=== PATIENT | male | born 1940 | race Caucasian/White ===

== ENCOUNTER 2020-02-01 14:40 | Observation (INO) | payer MEDICARE, MEDICAID ==
[~2020-02-01] VITALS: Ht 180.3 cm; Wt 114.1 kg
[2020-02-01 15:47] LABS: BASOPHILS % (AUTO) 0 % (0-1); EOSINOPHILS % (AUTO) 2 % (1-7); LYMPHOCYTES % (AUTO) 9 % (22-44); MEAN CORPUSCULAR HEMOGLOBIN 31.7 pg (27.5-34.5); MEAN CORPUSCULAR HGB CONC 33.1 g/dL (33.2-36.2); MONOCYTES % (AUTO) 11 % (2-9); NEUTROPHILS % (AUTO) 78 % (42-75); PLATELET COUNT 270 x10^3/uL (130-400); RED BLOOD COUNT 4.51 x10^6/uL (4.38-5.82); RED CELL DISTRIBUTION WIDTH 13.8 % (9.4-14.8)
[2020-02-01 15:49] LABS: ALANINE AMINOTRANSFERASE 11 U/L (12-78); ALBUMIN 2.9 g/dL (3.4-5.0); ANION GAP 5 mmol/L (5-15); CALCIUM 8.7 mg/dL (8.5-10.1); CHLORIDE 102 mmol/L (98-107); CREATININE 0.82 mg/dL (0.7-1.3)
[2020-02-01 15:50] LABS: MD NO
[2020-02-01 15:53] LABS: ALKALINE PHOSPHATASE 120 U/L (45-117); BILIRUBIN,TOTAL 0.4 mg/dL (0.2-1.0); TOTAL PROTEIN 7.1 g/dL (6.4-8.2); TROPONIN I < 0.015 ng/mL (0.000-0.045)
--- NOTE | 2020-02-01 16:12 | NUR ---
BETY CARTER, PT WITH C/O SOB C SHARP CP THIS AM RATED 12/20, PT TOOK 2 PAUL WITH SOME RELEIF CP NOW 09/19. PT RECIEVED 325 ASA PHOTO COLORER BY EMS. PT WITH HX DC C 8 STENTS. LAST DC IN JUNE THIS YR. PT TO CARD MONITOR, BP, CONT PULSE OX. PT STATES "I FEEL SO MUCH BETTER" ERMD IN TO EVAL PT, ORDERS RECIEVED
[2020-02-01] MEDS ORDERED: ONDANSETRON 2MG/ML, 2ML IVPush PRN (17:00)
[2020-02-01] MEDS ORDERED: NITROGLYCERIN 0.4 MG BOTTLE (25 TABS) SL PRN (17:00)
[2020-02-01] MEDS ORDERED: morphine SULFATE 10 MG/ML, 1ML IVPush PRN (17:00)
[2020-02-01] MEDS ORDERED: PROMETHAZINE 25 MG/ML, 1ML IM PRN (17:00)
--- NOTE | 2020-02-01 17:52 | NUR ---
PT TO BE ADMITTED, ADMITTING MD IN TO EVAL PT. WARM BLANKET PROVIDED TO PT, MEAL TRAY ORDERED, NO OTHER NEEDS
--- NOTE | 2020-02-01 18:15 | NUR ---
PT GIVEN MEAL TRAY
--- NOTE | 2020-02-01 18:52 | NUR ---
REPORT FROM DIVYA ARELLANO. PT RESTING WITH NO NEEDS AT THIS TIME. WAITING FOR BED ASSIGNMENT. CALL LIGHT IN REACH
[2020-02-01] MEDS ORDERED: MORPHINE SULFATE 4 MG/ML, 1ML ONE (19:50)
--- NOTE | 2020-02-01 19:55 | NUR ---
TASK RN, REPORT GIVEN TO NIEVES. PT READY FOR TRANSPORT. PT MEDICATED PER EMAR FOR 9/10 CHRONIC R HIP AND R BACK PAIN. VS UPDATED IN COMPUTER.
[2020-02-01] MEDS ORDERED: ATORVASTATIN 80 MG TABLET PO SCH (21:00)
[2020-02-01] MEDS: HEPARIN 5,000 UNITS/ML, 1ML SQ SCH (21:54)
[2020-02-01 22:03] LABS: TROPONIN I < 0.015 ng/mL (0.000-0.045)
[2020-02-01 22:07] VITALS: BP 104/63
[2020-02-01 22:23] VITALS: BP 94/93
[2020-02-01] MEDS ORDERED: FURO40TA6 PO (23:58)
[2020-02-01] MEDS ORDERED: NITR0.4T28 SL (23:58)
[2020-02-01] MEDS ORDERED: ROSU5TAB12 PO (23:58)
[2020-02-01] MEDS ORDERED: CARV3.122 PO (23:58)
[2020-02-01] MEDS ORDERED: DULO60CA7 PO (23:58)
[2020-02-01] MEDS ORDERED: TEMA30CA PO (23:58)
[2020-02-01] MEDS ORDERED: TAMS-11 PO (23:58)
[2020-02-01] MEDS ORDERED: POTA10CA PO (23:58)
[2020-02-01] MEDS ORDERED: GABA300C PO (23:58)
[2020-02-01] MEDS ORDERED: TICA90TA PO (23:58)
[2020-02-02 01:31] VITALS: BP 132/84
[2020-02-02 03:05] LABS: BASOPHILS % (AUTO) 1 % (0-1); EOSINOPHILS % (AUTO) 4 % (1-7); LYMPHOCYTES % (AUTO) 13 % (22-44); MEAN CORPUSCULAR HEMOGLOBIN 31.8 pg (27.5-34.5); MEAN CORPUSCULAR HGB CONC 32.9 g/dL (33.2-36.2); MEAN PLATELET VOLUME 8.7 fL (7.4-10.4); MONOCYTES % (AUTO) 12 % (2-9); NEUTROPHILS % (AUTO) 71 % (42-75); PLATELET COUNT 242 x10^3/uL (130-400); RED BLOOD COUNT 4.31 x10^6/uL (4.38-5.82); RED CELL DISTRIBUTION WIDTH 13.7 % (9.4-14.8)
[2020-02-02 03:06] LABS: MD NO
[2020-02-02 03:11] LABS: ALANINE AMINOTRANSFERASE 11 U/L (12-78); ALBUMIN 2.8 g/dL (3.4-5.0); ANION GAP 4 mmol/L (5-15); CALCIUM 8.7 mg/dL (8.5-10.1); CHLORIDE 103 mmol/L (98-107); CREATININE 0.81 mg/dL (0.7-1.3)
[2020-02-02 03:13] LABS: ALKALINE PHOSPHATASE 106 U/L (45-117); BILIRUBIN,TOTAL 0.4 mg/dL (0.2-1.0); TOTAL PROTEIN 6.8 g/dL (6.4-8.2)
[2020-02-02 03:39] LABS: TROPONIN I < 0.015 ng/mL (0.000-0.045)
[2020-02-02] MEDS ORDERED: ASPIRIN 325 MG TABLET EC PO SCH (06:00)
[2020-02-02] MEDS: HEPARIN 5,000 UNITS/ML, 1ML SQ SCH ×2 (06:05→14:50)
[2020-02-02] MEDS ORDERED: REGADENOSON 0.4 MG/5 ML SYRINGE ONE (09:00)
[2020-02-02 09:05] VITALS: BP 147/82
[2020-02-02 12:45] VITALS: BP 133/79
[2020-02-02] MEDS ORDERED: ASPI-515 PO (16:53)
[2020-02-02] MEDS ORDERED: METO25TA35 PO (16:53)
[2020-02-02] MEDS ORDERED: FLU VACC QS2020-21(6MOS UP)/PF 60MCG/0.5 ML SYR IM-VACC ONE (19:00)
[2020-02-02 19:37] VITALS: BP 136/76
== END 2020-02-02 21:07 | disposition home or self-care (01) ==
LOC: ED 17:21 → INTOOBSV 17:45 → EDIP 17:45 → 5SO 19:58
PROVIDERS: ADMIT Internal Medicine; ATTEND Internal Medicine
DX: R07.89 Other chest pain (principal); E66.9 Obesity, unspecified; R53.2 Functional quadriplegia; I10 Essential (primary) hypertension; I95.9 Hypotension, unspecified; I25.10 Atherosclerotic heart disease of native coronary artery without angina pectoris; D72.829 Elevated white blood cell count, unspecified; I25.2 Old myocardial infarction; J44.9 Chronic obstructive pulmonary disease, unspecified; Z95.810 Presence of automatic (implantable) cardiac defibrillator; Z95.5 Presence of coronary angioplasty implant and graft; Z93.59 Other cystostomy status; Z74.01 Bed confinement status; Z86.74 Personal history of sudden cardiac arrest; Z79.899 Other long term (current) drug therapy; Z23 Encounter for immunization
CPT/HCPCS: 36415; 71045; 78452; 80053; 83880; 84484; 85025; 90686; 93005; 93017; 96372; 96374; 99285; A9502; C8929; C9898; G0008; G0378; J1644; J2270; J2785; Q9957

== ENCOUNTER 2020-02-03 23:55 | Emergency (ER) | payer MEDICARE, MEDICAID ==
[~2020-02-03] VITALS: Ht 180.3 cm; Wt 115.0 kg
[~2020-02-03 23:55] MED LIST: ASPI-515 PO; CARV3.122 PO; DULO60CA7 PO; FURO40TA6 PO; GABA300C PO; METO25TA35 PO; NITR0.4T28 SL; POTA10CA PO; ROSU5TAB12 PO; TAMS-11 PO; TEMA30CA PO; TICA90TA PO
--- NOTE | 2020-02-04 00:21 | NUR ---
PT BIB [facility] FOR NOT BEING ABLE TO PEE AND THAT HIS CATHETER IS BLOCKED. PT IS BEDBOUND AND HAS A CHRONIC ENGLISH. ENGLISH WAS JUST CHANGED WITHIN LAST FEW DAYS WHILE IN HOSPITAL. PT BLADDER SCANNED AND PT HAS 35 MLS IN BLADDER. PT ALSO SAID HE HASNT HAD MUCH FLUIDS TODAY. PA NOTIFIED. WILL CONTINUE TO MONITOR. CALL LIGHT IN REACH
--- NOTE | 2020-02-04 00:34 | NUR ---
PT GIVEN WATER TO DRINK PER MD . LAB AT BEDSIDE. PT IN NAD. CALL LIGHT IN REACH
[2020-02-04 00:49] LABS: BASOPHILS % (AUTO) 0 % (0-1); EOSINOPHILS % (AUTO) 3 % (1-7); LYMPHOCYTES % (AUTO) 6 % (22-44); MEAN CORPUSCULAR HEMOGLOBIN 31.5 pg (27.5-34.5); MEAN CORPUSCULAR HGB CONC 32.6 g/dL (33.2-36.2); MEAN PLATELET VOLUME 9.4 fL (7.4-10.4); MONOCYTES % (AUTO) 10 % (2-9); NEUTROPHILS % (AUTO) 81 % (42-75); PLATELET COUNT 251 x10^3/uL (130-400); RED BLOOD COUNT 4.73 x10^6/uL (4.38-5.82); RED CELL DISTRIBUTION WIDTH 13.7 % (9.4-14.8)
[2020-02-04 00:50] LABS: MD NO
[2020-02-04 00:56] LABS: ANION GAP 3 mmol/L (5-15); CALCIUM 8.6 mg/dL (8.5-10.1); CHLORIDE 103 mmol/L (98-107); CREATININE 0.78 mg/dL (0.7-1.3)
[2020-02-04] MEDS ORDERED: ACETAMINOPHEN 325 MG TABLET PO ONE (01:30)
--- NOTE | 2020-02-04 02:15 | NUR ---
ENGLISH REPLACED. 1500 MLS DRAINING. PT FEELING BETTER. UPDATED
--- NOTE | 2020-02-04 03:11 | NUR ---
PT TO BE DISCHARGED HOME. MT ARRANGING [facility]
--- NOTE | 2020-02-04 04:03 | NUR ---
PT SLEEPING. EVEN RISE AND FALL OF CHEST OBSERVED. VSS, [facility] TO SOLAR TECH AT 0430
--- NOTE | 2020-02-04 05:08 | NUR ---
ENGLISH EMPTIED. REPORT TO RAUL. S.
[2020-02-04 05:09] VITALS: BP 125/71
== END 2020-02-04 05:19 | disposition home or self-care (01) ==
LOC: ED 02-04 00:38
DX: R31.0 Gross hematuria (principal); T83.098A Other mechanical complication of other urinary catheter, initial encounter; I11.9 Hypertensive heart disease without heart failure; I25.10 Atherosclerotic heart disease of native coronary artery without angina pectoris
CPT/HCPCS: 36415; 51702; 80048; 85025; 99284

== ENCOUNTER 2020-02-19 11:15 | Emergency (ER) | payer MEDICARE, MEDICAID ==
[~2020-02-19] VITALS: Ht 177.8 cm; Wt 112.0 kg
--- NOTE | 2020-02-19 12:00 | NUR ---
BLADDER SCAN SHOWED 288CC IN BLADDER. PT HAS PAIN ON PALPATION OF LOWER ABD.
[2020-02-19 12:16] LABS: BASOPHILS % (AUTO) 1 % (0-1); EOSINOPHILS % (AUTO) 1 % (1-7); LYMPHOCYTES % (AUTO) 5 % (22-44); MEAN CORPUSCULAR HEMOGLOBIN 31.4 pg (27.5-34.5); MEAN CORPUSCULAR HGB CONC 32.8 g/dL (33.2-36.2); MEAN PLATELET VOLUME 9.4 fL (7.4-10.4); MONOCYTES % (AUTO) 9 % (2-9); NEUTROPHILS % (AUTO) 85 % (42-75); PLATELET COUNT 298 x10^3/uL (130-400); RED BLOOD COUNT 4.84 x10^6/uL (4.38-5.82); RED CELL DISTRIBUTION WIDTH 13.9 % (9.4-14.8)
[2020-02-19 12:29] LABS: ALBUMIN 3.2 g/dL (3.4-5.0); ANION GAP 7 mmol/L (5-15); CALCIUM 9.2 mg/dL (8.5-10.1); CHLORIDE 99 mmol/L (98-107)
[2020-02-19 12:33] LABS: ALANINE AMINOTRANSFERASE 13 U/L (12-78); ALKALINE PHOSPHATASE 131 U/L (45-117); BILIRUBIN,TOTAL 0.8 mg/dL (0.2-1.0); CREATININE 0.88 mg/dL (0.7-1.3); TOTAL PROTEIN 7.6 g/dL (6.4-8.2)
[2020-02-19 13:38] LABS: MD SCAN
--- NOTE | 2020-02-19 14:01 | NUR ---
ENGLISH PLACED PER ORDER. 1700CC URINE DRAINED FROM BAG. URINE SAMPLE WALKED TO LAB.
[2020-02-19] MEDS ORDERED: CEFTRIAXONE 500 MG in DEXTROSE 5% 50 ML IV SCH (14:30)
[2020-02-19] MEDS ORDERED: CEFTRIAXONE PMX 1GM/50ML 50 ML ONE (14:56)
[2020-02-19] MEDS ORDERED: CEFTRIAXONE PMX 1GM/50ML 50 ML IV ONE (15:00)
[2020-02-19 15:03] VITALS: BP 110/68
[2020-02-19 15:06] LABS: MICROSCOPIC INDICATED
--- NOTE | 2020-02-19 15:10 | NUR ---
BREAK RN FOR PRIMARY RN OSHAUNESSY. PT RESTING IN POSITION OF COMFORT. DENIES ANY PAIN. IV ANTIBIOTICS INFUSING PER ORDER. ENGLISH IN PLACE, DRAINING PROPERLY. VSS. PT REPORTS HE IS BEDRIDDEN AND UNABLE TO TOLERATE SITTING IN A WHEELCHAIR. ARRANGEMENTS IN PROGRESS VIA THROUGHPUT RN FOR TRANSPORT BACK HOME, PT TO BE DISCHARGED S/P IV ANTIBIOTIC INFUSION.
--- NOTE | 2020-02-19 15:40 | NUR ---
BEDSIDE REPORT AND CARE BACK TO PRIMARY RN OSHAUNESSY AT THIS TIME
== END 2020-02-19 17:52 | disposition home or self-care (01) ==
LOC: ED 12:46
DX: N39.0 Urinary tract infection, site not specified (principal); R31.9 Hematuria, unspecified; I25.10 Atherosclerotic heart disease of native coronary artery without angina pectoris; I11.9 Hypertensive heart disease without heart failure
CPT/HCPCS: 36415; 51700; 80053; 81001; 85025; 87077; 87086; 87186; 96365; 99285; J0696

== ENCOUNTER 2020-12-26 06:38 | Emergency (ER) | payer MEDICARE ==
[~2020-12-26] VITALS: Ht 180.3 cm; Wt 127.3 kg
[~2020-12-26 06:38] MED LIST changes: -ASPI-515 PO; +ASPI-963 PO
--- NOTE | 2020-12-26 06:39 | NUR ---
AYANNA CASTRO FROM HOME FOR A CLOGGED ENGLISH, PT STATES HIS ENGLISH HAS BEEN DRAINING CALEB COLORED URINE FOR THE LAST 3 DAYS AND HAS YELLOW EXUDATE IN HIS CATHETER WELL
--- NOTE | 2020-12-26 06:58 | NUR ---
ER MD AT BEDSIDE TO DISCUSS POC
[2020-12-26] MEDS ORDERED: FOSFOMYCIN 3 GM PACKET PO ONE (07:00)
--- NOTE | 2020-12-26 07:00 | NUR ---
REPORT RECEIVED, CARE ASSUMED.
[2020-12-26] MEDS ORDERED: FOSFOMYCIN 3 GM PACKET ONE (07:17)
--- NOTE | 2020-12-26 07:56 | NUR ---
PT ARRIVED WITH ENGLISH IN PLACE. DC'D PRIOR TO INSERTION OF NEW ENGLISH. 1000MLS CLOUDY URINE IN NEW ENGLISH. URINE SPECIMAN COLLECTED AND WALKED TO LAB. PT WITH YEASTY RASH TO LEIGH SKIN FOLDS, GREATER ON LEFT THAN RIGHT. "I HAVE SOME CREAM THAT GETS PUT ON IT.
[2020-12-26 08:39] LABS: MICROSCOPIC INDICATED
--- NOTE | 2020-12-26 09:00 | NUR ---
PT DOZING INTERMITTENTLY, AROUSES TO NAME. ENGLISH TO DD. NO NEEDS EXPRESSED AT THIS TIME.
--- NOTE | 2020-12-26 09:58 | NUR ---
PT CONT DOZING, AROUSES EASILY. AMADOR TO JOEL. NOTED SEDIMENT IN TUBING. NO NEEDS EXPRESSED AT THIS TIME. WAITING FOR FURTHER DISPOSITION.
--- NOTE | 2020-12-26 10:31 | NUR ---
THROUGHPUT RN NOTE : PT REQUIRING MEDICAL TRANSPORT TO RETURN HOME HE REQUIRES OXYGEN AND IS WHEELCHAIR BOUND. 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 HEDY IS NAMED [place], PHONE NUMBER IS [phone], THIS WAS CONFIRMED CORRECT BY PT. HEDY CALLED, NO ANSWER, LINE BUSY. THERE IS NO ALTERNATE PHONE NUMBER TO REACH PER PT.
--- NOTE | 2020-12-26 10:45 | NUR ---
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 LINE REMAINS BUSY.
--- NOTE | 2020-12-26 11:19 | NUR ---
THROUGHPUT RN NOTE: PT'S LETYEZRA REACHED, NOTIFIED THAT PT IS DISCHARGING, [facility]ORT ARRANGED FOR 1500 PICKUP FROM [facility] TO PT'S RESIDENCE. LETYEZRA ROCK CONFIRMS THAT SHE WILL BE HOME FOR PT ARRIVAL. PT AND EUFEMIA CONFIRM PT IS ABLE TO TRANSFER FROM BED TO WHEELCHAIR AND [facility]ICE [facility].
--- NOTE | 2020-12-26 11:21 | NUR ---
PT CONT DOZING INTERMITTENTLY, AROUSES EASILY. PT AWARE OF POC, WAITING FOR [facility]. NO NEEDS EXPRESSED AT THIS TIME.
--- NOTE | 2020-12-26 12:47 | NUR ---
NO CHANGE IN PT CONDITION NOTED. WAITING FOR TRANSPORT
--- NOTE | 2020-12-26 13:22 | NUR ---
Break RN note: Pt resting in bed with eyes closed, resp even and unlabored, NADN.
[2020-12-26 13:23] VITALS: BP 136/66
--- NOTE | 2020-12-26 14:52 | NUR ---
PT AWAKE, ASKING FOR FOOD AND FLUIDS. PT PROVIDED WITH JUICE, CRACKERS AND JELLO. PT AWARE OF WAITING FOR [facility], APPROX ETA 1500. ENGLISH BAG EMPTIED 1450 CC CLOUDY URINE. NO OTHER NEEDS EXPRESSED AT THIS TIME.
--- NOTE | 2020-12-26 15:25 | NUR ---
[facility] HERE. NO IV TO DC. REVIEWED DC INSTRUCTIONS WITH PT. UNDERSTANDING VERBALIZED. PT LEFT VIA W/C.
== END 2020-12-26 15:28 | disposition home or self-care (01) ==
LOC: ED 08:03
DX: R33.8 Other retention of urine (principal); I10 Essential (primary) hypertension; I25.10 Atherosclerotic heart disease of native coronary artery without angina pectoris
CPT/HCPCS: 51702; 81001; 87077; 87086; 87186; 99283; 99284; 99285